=== PATIENT | female | born 1945 | race Caucasian/White ===

== ENCOUNTER → 2016-12-13 | Outpatient (CLI) | payer MEDICARE, OTHER ==
[~2016-12-13] MED LIST: CYCLOBENZAPRINE5 MG PO; LIPITOR80 MG PO; METOPROLOL SUC200 MG PO; NEURONTIN300 MG PO; PROTONIX PO; VITAMIN D50000 UNIT PO; ZOLOFT100 MG PO; ZYRTEC10 M5 PO
--- NOTE | ~2016-12-13 | HM ---
Unit #: [id number] #: [id number] Patient: MATT CAT [id number] [address] [place], [place] [address] [id number] MR#: [id number] NAME: MATT CAT. : 1945 SEX: F STUDY DATE/[place]: [place] [facility] [place] STUDY DESCRIPTION: Holter Monitor Attending Physician: Tan Aragon M.D. Referring Physician: Tan Aragon M.D. Primary Care Physician: Tan Aragon M.D. CARDIOLOGY REPORT EXAM 24 Hour Holter Monitor DATE APPLIED 12/13/2016 DATE SCANNED 12/17/2016 ORDERED BY Tan Aragon M.D. READ BY Amanda Romero M.D. REASON FOR THE STUDY Dizziness. FINDINGS Underlying rhythm is normal sinus rhythm with an average heart rate of 63 beats/minute, minimum heart rate of 4859 beats/minute, and a maximum heart rate of 100 beats/minute. The minimum heart rate of 48 beats/minute is noted at 1:47 a.m. The maximum heart rate of 100 beats/minute is noted at 3:04 a.m. The patient had a 1.04 second pause noted at 3:21 p.m. The patient had 21 single multifocal premature ventricular complexes noted. The patient had 361 single premature atrial complexes and seven atrial couplets noted. The patient had seven short runs of paroxysmal supraventricular tachycardia with heart rate ranging from 110 to 135 beats/minute. The patient did not record any symptoms. CONCLUSION 1. Underlying rhythm is normal sinus rhythm with an average heart rate of 63 beats/minute, minimum heart rate of 48 beats/minute and a maximum heart of 100 beats/minute. 2. No sustained atrial or ventricular arrhythmias noted. 3. No significant pauses noted. 4. Occasional single multifocal premature ventricular complex noted. 5. Frequent single premature atrial complex noted. 6. The patient had seven 4-5 beat run of paroxysmal supraventricular tachycardia with heart rate ranging from 130 to 135 beats/minute. 7. Patient did not record any symptoms. 8. 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 Unit #: [id number] #: [id number] Patient: MATT CAT Dictated by... Coni Soliman TD: 12/22/2016 12:11 JOB #: [id number] CARDIOLOGY REPORT Page 1 of 1 X Amanda Romero MD <ELECTRONICALLY SIGNED> 03/12/17 1429 HOLTER MONITOR REPORT
== END | disposition home or self-care (01) ==
LOC: CEKG 10:27
DX: R42 Dizziness and giddiness (principal)
CPT/HCPCS: 93225; 93226